=== PATIENT | female | born 1985 | race African-American/Black ===

== ENCOUNTER 2017-02-27 05:12 | Emergency (ER) | payer BC ==
[2017-02-27 05:18] VITALS: BMI 27.3
--- NOTE | 2017-02-27 06:09 | DR.GENAD ---
HPI - PCP Primary Care Physician: NFD - Complaint/Symptoms Chief Complaint Doctors Comments: Patient admits to headache on last night awakened this morning with left sided facial paralysis. Chief Complaint:: " Woke up to face swollen on left side with pain." - Source History Provided: Patient - Mode of Arrival Mode of Arrival: Ambulatory - Timing Onset of Chief Complaint: 02/27/17 PMH - PMH Past Medical History: No Past Surgical History: Yes Surgical History: , Cholecystectomy, Ortho Surgery - Family History History of Family Medical Conditions: Yes Family Medical History: Diabetes Mellitus, Hypertension - Social History Alcohol Use: None Do you use any recreational Drugs:: No Lives With: Family Lives Where: Home - infectious screening Have you traveled outside the country in the last 6 months?: No ROS - Review of Systems Eyes: No Symptoms Reported ENTM: No Symptoms Reported Respiratoy: No Symptoms Reported Cardiovascular: No Symptoms Reported Gastrointestinal/Abdominal: No Symptoms Reported Genitourinary: No Symptoms Reported Neurological: No Symptoms Reported Musculoskeletal: See HPI, Other (left sided facial paralysis) Integumentary: No Symptoms Reported Hematologic/Lymphatic: No Symptoms Reported Endocrine: No Symptoms Reported Psychiatric: No Symptoms Reported All Other Systems: Reviewed and Negative PE - Vital Signs Vitals: Temperature 97.9 F Pulse Rate 83 Respiratory Rate 18 Blood Pressure 130/91 O2 Sat by Pulse Oximetry 100 - General Limitations: No Limitations General Appearance: Alert, In No Apparent Distress - Head Head Exam: Normal Inspection, Atraumatic - Eyes Eye exam: Normal Appearance, PERRL, EOMI - ENT ENT Exam: Normal Exam External Ear Exam: Normal External Inspection TM/Canal Exam: Bilateral Normal Nose Exam: Normal Nose Exam Mouth Exam: Trismus, Other (left sided facial paresis) Throat Exam: Normal Inspection - Neck Neck Exam: Normal Inspection - Chest Chest Inspection: Normal Inspection - Respiratory Respiratory Exam: Normal Lung Sounds Bilat Respiratory Exam: Bilateral Clear to Auscultation - Cardiovascular Cardiovascular Exam: Regular Rate, Normal Rhythm - Abdominal Exam Abdominal Exam: Normal Inspection Abdominal Tenderness: negative: RUQ, RLQ, LUQ, LLQ, Epigastrium, Suprapubic, Diffuse, Mild, Moderate, Severe, Other - Extremities Extremities Exam: Normal Inspection, Full ROM - Back Back Exam: Normal Inspection, Full ROM - Neurologic Neurological Exam: Alert, Oriented X3, CN II-XII Intact - Psychiatric Psychiatric Exam: Normal Affect - Skin Skin Exam: Warm, Dry, Intact ROR - XRAY XRAY Interpreted by: Radiologist (CT Brain: No acute abnormality noted.) - Diagnosis Discharge Problem: Tafoya's palsy - Discharge Plan Condition: Stable - Follow ups/Referrals Follow ups/Referrals: NFD,None [Primary Care Provider] - 3 days - Instructions
--- NOTE | 2017-02-27 06:31 | CT ---
CT head without contrast Indication: Pain after fall. Left-sided facial paralysis. Technique: Axial images from the skullbase to the vertex without contrast. Coronal and sagittal refo rmats provided. Findings: There is no acute intracranial hemorrhage, mass or mass effect. Ventricles and sulci are n ormal. No extra-axial fluid collection or abnormal area of hypoattenuation to suggest infarction see n. Review of bone windows shows no osseous abnormality. The sinuses and mastoid air cells are clear. Impression: No acute intracranial abnormality. Reported By:
[2017-02-27] MEDS ORDERED: NS 1000 ML 1,000 ML ONE ×2 (08:46→09:45)
[2017-02-27] MEDS ORDERED: ZOFRAN INJ 4 MG VIAL ONE ×3 (08:46→10:20)
[2017-02-27] MEDS ORDERED: NS 50 ML IV + SPIKE MINIBAG* 50 ML IV ONE (09:06)
[2017-02-27 09:35] LABS: ABG BASE EXCESS 0.9 mmol/L (-2.0-2.0); ABG HCO3 21.1 mmol/L (22-26)
[2017-02-27 09:36] LABS: ABG ALLEN TEST POS
[2017-02-27 09:48] LABS: BASOPHILS # (AUTO) 0.1 X10^3/uL (0.0-0.1); BASOPHILS % (AUTO) 0.7 % (0.2-1.0); EOSINOPHILS # (AUTO) 0.2 x10^3/uL (0.0-0.2); EOSINOPHILS % (AUTO) 1.8 % (0.9-2.9); HEMATOCRIT 37.5 % (36.0-47.0); HEMOGLOBIN 12.2 g/dL (12.0-16.0); LYMPHOCYTES # (AUTO) 2.8 X10^3/uL (1.3-2.9); LYMPHOCYTES % (AUTO) 28.3 % (21.0-51.0); MEAN CORPUSCULAR HEMOGLOBIN 25.6 pg (27.0-34.0); MEAN CORPUSCULAR HGB CONC 32.5 g/dL (33.0-35.0); MEAN CORPUSCULAR VOLUME 78.7 fL (80.0-100.0); MEAN PLATELET VOLUME 10.1 fL (7.4-11.0); MONOCYTES # (AUTO) 0.4 x10^3/uL (0.3-0.8); MONOCYTES % (AUTO) 4.5 % (0.0-13.0); NEUTROPHILS # (AUTO) 6.4 x10^3/uL (2.2-4.8); NEUTROPHILS % (AUTO) 64.7 % (42.0-75.0); PLATELET COUNT 186 X10^3/uL (150.0-450.0); RED BLOOD COUNT 4.76 X10^6/uL (3.5-5.4); RED CELL DISTRIBUTION WIDTH 13.9 % (11.6-16.5)
--- NOTE | 2017-02-27 09:49 | CT ---
HISTORY: Altered mental status. Study: CT brain without contrast. Dose reduction techniques including Automated Exposure Control (A EC) and adjustment of mA and kV were utilized. Comparison: Head CT performed earlier the same day. Technique: Multiple axial images of the brain were obtained from the skull base to the vertex without administr ation of IV contrast. Findings: No acute intraparenchymal hemorrhage or mass can be identified. No extra-axial fluid col lections are seen. No alteration in the attenuation of the brain parenchyma can be identified to arauz ggest acute or subacute ischemic change. The ventricular system is symmetric and nondilated. The e xtracranial structures are grossly unremarkable. IMPRESSION: No acute intracranial process is evident. There is no concerning change compared with 3 hours earlie r. If symptoms persist, then MR of the brain may be of further diagnostic benefit. Reported By:
[2017-02-27] MEDS ORDERED: ACTIVASE IVP ONE (10:00)
[2017-02-27 10:01] LABS: PLATELET MORPHOLOGY COMMENT NORMAL (NORMAL)
[2017-02-27 10:02] LABS: BLOOD UREA NITROGEN 9 mg/dL (7-18); CALCIUM 9.1 mg/dL (8.5-10.1); CARBON DIOXIDE 22.2 mmol/L (21-32); CHLORIDE 107 mmol/L (98-107); COR NA(FOR HYPERGLY) 141 mmol/L (136-145); CREATININE 0.99 mg/dL (0.55-1.02); GLUCOSE 114 mg/dL (65-99); SODIUM 141 mmol/L (136-145); TROPONIN I < 0.02 ng/mL (0-1.5); eGFR BLACK RACES > 60 (>60); eGFR NON BLACK RACES > 60 (>60)
[2017-02-27] MEDS ORDERED: ACTIVASE IV ONE (10:03)
[2017-02-27] MEDS ORDERED: NS IV ONE (10:03)
[2017-02-27] MEDS ORDERED: ATIVAN INJ 2 MG VIAL ONE (10:04)
[2017-02-27 10:06] LABS: ALANINE AMINOTRANSFERASE 24 Units/L (12-78); ALBUMIN 3.7 g/dL (3.4-5.0); ALKALINE PHOSPHATASE 85 Units/L (46-116); ASPARTATE AMINO TRANSFERASE 18 Units/L (15-37); CKMB % 0.4 % (<4); CREATINE KINASE 232 Units/L (26-192); CREATINE KINASE MB < 1.0 ng/mL (0-4.0); TOTAL PROTEIN 7.5 g/dL (6.4-8.2)
[2017-02-27] MEDS ORDERED: ATIVAN INJ 2 MG VIAL IVP ONE (10:06)
[2017-02-27 10:11] LABS: B-TYPE NATRIURETIC PEPTIDE 88.6 pg/mL (0-79)
[2017-02-27 10:18] LABS: BILIRUBIN,URINE NEGATIVE (NEGATIVE); BLOOD/HEMOGLOBIN,URINE NEGATIVE (NEGATIVE); GLUCOSE, URINE NEGATIVE (NEGATIVE); KETONES,URINE NEGATIVE (NEGATIVE); LEUKOCYTE ESTERASE ,URINE NEGATIVE (NEGATIVE); NITRITES,URINE NEGATIVE (NEGATIVE); PROTEIN,URINE NEGATIVE (NEGATIVE); UROBILINOGEN,URINE NORMAL (NORMAL)
--- NOTE | 2017-02-27 10:28 | RAD ---
HISTORY: Altered mental status, facial drooping, speech disturbance Study: Single-view chest Comparison: December 14, 2016 Findings: The trachea is midline. The cardiac silhouette is borderline enlarged when considering the AP techn ique. The lungs are clear without focal mass or consolidation. There is no effusion or pneumothora x. Thoracic scoliosis is noted. IMPRESSION: Borderline cardiomegaly without acute cardiopulmonary otherwise noted. Reported By:
[2017-02-27 10:30] LABS: AMORPHOUS SEDIMENT,UR TRACE /HPF (NEGATIVE); APPEARANCE,URINE CLEAR (CLEAR); BACTERIA,URINE NEGATIVE /HPF (NEGATIVE); COLOR,URINE PALE YELLOW (YELLOW); RBC,URINE NONE SEEN /HPF (NEGATIVE); SQUAMOUS EPITHELIAL CELL,UR RARE /HPF (NEGATIVE)
[2017-02-27 10:43] LABS: CHOL/HDL RATIO 2.7 (0.0-5.0); SERUM PREGNANCY TEST, QUAL NEGATIVE <10 mIU/mL
[2017-02-27 13:26] VITALS: BP 142/97
== END 2017-02-27 10:34 | disposition short-term general hospital (02) ==
LOC: ER 05:12
DX: G51.0 Bell's palsy (principal); R51 Headache
CPT/HCPCS: 36415; 36600; 51702; 70450; 71010; 80053; 80061; 80307; 81001; 82550; 82553; 82803; 83880; 84484; 84703; 85025; 85378; 85384; 85610; 85730; 93005; 93010; 93041; 96365; 96374; 96375; 99282; 99291; A4222; G0434; J2060; J2405; J2997

== ENCOUNTER → 2017-03-09 | Outpatient (CLI) | payer BC ==
[2017-02-27 13:26] VITALS: BP 142/97
[2017-03-09 07:39] LABS: BASOPHILS # (AUTO) 0.1 X10^3/uL (0.0-0.1); BASOPHILS % (AUTO) 0.8 % (0.2-1.0); EOSINOPHILS # (AUTO) 0.3 x10^3/uL (0.0-0.2); EOSINOPHILS % (AUTO) 3.3 % (0.9-2.9); HEMATOCRIT 39.7 % (36.0-47.0); HEMOGLOBIN 12.8 g/dL (12.0-16.0); LYMPHOCYTES # (AUTO) 3.6 X10^3/uL (1.3-2.9); MEAN CORPUSCULAR HEMOGLOBIN 25.6 pg (27.0-34.0); MEAN CORPUSCULAR HGB CONC 32.2 g/dL (33.0-35.0); MEAN CORPUSCULAR VOLUME 79.3 fL (80.0-100.0); MONOCYTES # (AUTO) 0.5 x10^3/uL (0.3-0.8); MONOCYTES % (AUTO) 4.9 % (0.0-13.0); NEUTROPHILS # (AUTO) 5.3 x10^3/uL (2.2-4.8); PLATELET COUNT 213 X10^3/uL (150.0-450.0); RED BLOOD COUNT 5.01 X10^6/uL (3.5-5.4); RED CELL DISTRIBUTION WIDTH 13.8 % (11.6-16.5); WHITE BLOOD COUNT 9.8 X10^3/uL (3.6-10.0)
[2017-03-09 07:49] LABS: ALANINE AMINOTRANSFERASE 49 Units/L (12-78); ALBUMIN 4.1 g/dL (3.4-5.0); ALKALINE PHOSPHATASE 85 Units/L (46-116); ASPARTATE AMINO TRANSFERASE 24 Units/L (15-37); BLOOD UREA NITROGEN 10 mg/dL (7-18); CALCIUM 9.2 mg/dL (8.5-10.1); CARBON DIOXIDE 27.7 mmol/L (21-32); CHLORIDE 104 mmol/L (98-107); CHOL/HDL RATIO 2.8 (0.0-5.0); CHOLESTEROL 169 mg/dL (0-200); CREATININE 0.93 mg/dL (0.55-1.02); GLUCOSE 98 mg/dL (65-99); HDL CHOLESTEROL 60 mg/dL (40-60); SODIUM 140 mmol/L (136-145); TOTAL PROTEIN 8.5 g/dL (6.4-8.2); TRIGLYCERIDES 103 mg/dL (0-150); eGFR BLACK RACES > 60 (>60); eGFR NON BLACK RACES > 60 (>60)
[2017-03-09 07:58] LABS: PLATELET MORPHOLOGY COMMENT NORMAL (NORMAL)
[2017-03-13 07:21] LABS: INSULIN 11 uIU/mL
== END ==
LOC: LAB 07:13
PROVIDERS: ATTEND Obstetrics & Gynecology Obstetrics
DX: I69.90 Unspecified sequelae of unspecified cerebrovascular disease (principal)
CPT/HCPCS: 36415; 80053; 80061; 82615; 83525; 85025

== ENCOUNTER 2017-03-22 07:18 | Emergency (ER) | payer BC ==
[2017-03-22 07:23] VITALS: BMI 25.0
--- NOTE | 2017-03-22 07:42 | DR.GENAD ---
HPI - PCP Primary Care Physician: mabel - HPI Comment HPI Comment: PROGRESSIVE WEAKNESS OF LEFT FACE THIS AM. LEFT EYE TEARING, NOT CLOSING TIGHT. SHE FEEL PRESSURE BEHIND LEFT EYE AND LT MAXILLA.NO FEVER OR SINUS TRAINAGE. NO TRAUMA. - Complaint/Symptoms Chief Complaint Doctors Comments: WEAKNESS LEFT FACE AND EYE, FEEL BAD. Chief Complaint:: pt woke up not feeling good this morning she feels like she has pressure behind her left eye her left cheeck bone is hurting - Nurses notes reviewed Nurses Notes Review: Yes - Source History Provided: Patient - Mode of Arrival Mode of Arrival: Ambulatory - Timing Onset of Chief Complaint: 03/22/17 Came on: Gradually - Duration Duration: Constant Duration: Hours - Severity Severity: Moderate <DEBBI KNISEY - Last Filed: 03/22/17 08:25> PMH - PMH Past Medical History: Yes Past Medical History Comment: TIA Past Surgical History: Yes Surgical History: , Cholecystectomy, Ortho Surgery - Family History History of Family Medical Conditions: Yes Family Medical History: Diabetes Mellitus, Hypertension - Social History Does patient currently use any type of tobacco product: Yes Have you used tobacco products in the last 12 months: Yes Type of Tobacco Use: Cigarettes How many years tobacco product used: 9 Does any household member use tobacco: No Alcohol Use: None Do you use any recreational Drugs:: No Lives With: Family, Significant Other Lives Where: Home - infectious screening In the last 2 months have you had wt loss of >10#?: NO Have you had fever, night sweats or hemotysis?: No Have you traveled outside the country in the last 6 months?: No Isolation: Standard <DEBBI KINSEY - Last Filed: 03/22/17 08:25> ROS - Review of Systems Constitutional: Weakness (GENERALIZE WEAKNESS.), Fatigue. negative: Chills, Fever Eyes: Tearing (LT EYE). negative: Blurred Vision, Photophobia ENTM: Ear Pain (LT EAR). negative: Nose Discharge, Nose Congestion, Throat Pain Respiratoy: No Symptoms Reported. negative: Productive Cough, Non-Productive Cough, Short of Breath, Wheezing, Hemoptysis Cardiovascular: No Symptoms Reported. negative: Chest Pain, Edema, Palpitations , Syncope Gastrointestinal/Abdominal: Nausea. negative: Abdominal Pain, Diarrhea, Vomiting Genitourinary: No Symptoms Reported. negative: Dysuria, Frequency, Hematuria Neurological: Pre-existing Deficit (RECENT NEURO DEFICIT THAT IS QUICKLY RESOLVING.), Weakness, Other (LEFT FACIAL WEAKNESS) Musculoskeletal: No Symptoms Reported Integumentary: No Symptoms Reported Hematologic/Lymphatic: No Symptoms Reported Endocrine: No Symptoms Reported All Other Systems: Reviewed and Negative <DEBBI KINSEY - Last Filed: 03/22/17 08:25> PE - General Limitations: No Limitations General Appearance: Alert - Head Head Exam: Other (FACIAL WEAKNESS, LT.) - Eyes Eye exam: Normal Appearance - ENT ENT Exam: Normal External Ear Exam External Ear Exam: Normal External Inspection TM/Canal Exam: Bilateral Normal Nose Exam: Normal Nose Exam Mouth Exam: Normal Inspection Throat Exam: Normal Inspection - Neck Neck Exam: Trachea Midline - Chest Chest Inspection: Symmetric Chest Wall Rise - Respiratory Respiratory Exam: Normal Lung Sounds Bilat Respiratory Exam: Bilateral Clear to Auscultation - Cardiovascular Cardiovascular Exam: Regular Rate, Normal Rhythm, Normal Heart Sounds - Abdominal Exam Abdominal Exam: Normal Bowel Sounds, Soft. negative: Tenderness - Extremities Extremities Exam: Normal Inspection - Back Back Exam: Normal Inspection - Neurologic Neurological Exam: Alert, Oriented X3, CN II-XII Intact. negative: Motor Sensory Deficit (SLIGHT LEFT SIDED WEAKNESS) - Psychiatric Psychiatric Exam: Anxious - Skin Skin Exam: Normal Color <DEBBI KINSEY - Last Filed: 03/22/17 08:25> MDM - Differential Diagnosis Differential Diagnosis: CVA, TIA, SINUSITIS <DEBBI KINSEY - Last Filed: 03/22/17 08:25> Course - Reevaluation 1st: Improved <SANTOSH HDEZ - Last Filed: 03/22/17 08:54> ROR - Labs Reviewed Result Diagrams: 03/22/17 07:50 03/22/17 07:50 <EDBBI KINSEY - Last Filed: 03/22/17 08:25> - Labs Reviewed Result Diagrams: 03/22/17 07:50 03/22/17 07:50 - XRAY XRAY Interpreted by: Radiologist (CT Brain: No intracranial process identified, Chest x ray: No infiltrated confirmed) <SANTOSH HDEZ - Last Filed: 03/22/17 08:54> - Labs Reviewed Laboratory: WBC 7.1 X10^3/uL (3.6-10.0) 03/22/17 07:50 RBC 4.61 X10^6/uL (3.5-5.4) 03/22/17 07:50 Hgb 12.0 g/dL (12.0-16.0) 03/22/17 07:50 Hct 36.5 % (36.0-47.0) 03/22/17 07:50 MCV 79.1 fL (80.0-100.0) L 03/22/17 07:50 MCH 26.1 pg (27.0-34.0) L 03/22/17 07:50 MCHC 33.0 g/dL (33.0-35.0) 03/22/17 07:50 RDW 13.4 % (11.6-16.5) 03/22/17 07:50 Plt Count 164 X10^3/uL (150.0-450.0) 03/22/17 07:50 MPV 10.5 fL (7.4-11.0) 03/22/17 07:50 Neut % 61.3 % (42.0-75.0) 03/22/17 07:50 Lymph % 31.8 % (21.0-51.0) 03/22/17 07:50 [place] % 4.5 % (0.0-13.0) 03/22/17 07:50 Eos % 2.0 % (0.9-2.9) 03/22/17 07:50 Baso % 0.4 % (0.2-1.0) 03/22/17 07:50 Neut # 4.3 x10^3/uL (2.2-4.8) 03/22/17 07:50 Lymph # 2.3 X10^3/uL (1.3-2.9) 03/22/17 07:50 [place] # 0.3 x10^3/uL (0.3-0.8) 03/22/17 07:50 Eos # 0.1 x10^3/uL (0.0-0.2) 03/22/17 07:50 Baso # 0.0 X10^3/uL (0.0-0.1) 03/22/17 07:50 Absolute Nucleated RBC 0.0 /100WBC 03/22/17 07:50 Sodium 142 mmol/L (136-145) 03/22/17 07:50 Corrected Sodium 142 mmol/L (136-145) 03/22/17 07:50 Potassium 3.4 mmol/L (3.5-5.1) L 03/22/17 07:50 Chloride 107 mmol/L (98-107) 03/22/17 07:50 Carbon Dioxide 25.4 mmol/L (21-32) 03/22/17 07:50 BUN 8 mg/dL (7-18) 03/22/17 07:50 Creatinine 1.04 mg/dL (0.55-1.02) H 03/22/17 07:50 Est GFR (MDRD) Af Amer > 60 (>60) 03/22/17 07:50 Est GFR (MDRD) Non-Af > 60 (>60) 03/22/17 07:50 Glucose 113 mg/dL (65-99) H 03/22/17 07:50 Calcium 8.8 mg/dL (8.5-10.1) 03/22/17 07:50 Corrected Calcium TNP 03/22/17 07:50 Total Bilirubin 0.30 mg/dL (0.2-1.0) 03/22/17 07:50 AST 12 Units/L (15-37) L 03/22/17 07:50 ALT 18 Units/L (12-78) 03/22/17 07:50 Alkaline Phosphatase 71 Units/L (46-116) 03/22/17 07:50 Creatine Kinase 116 Units/L (26-192) 03/22/17 07:50 CK-MB (CK-2) < 1.0 ng/mL (0-4.0) 03/22/17 07:50 CK/CKMB % Calc 0.9 % (<4) 03/22/17 07:50 Troponin I < 0.02 ng/mL (0-1.5) 03/22/17 07:50 Total Protein 7.3 g/dL (6.4-8.2) 03/22/17 07:50 Albumin 3.7 g/dL (3.4-5.0) 03/22/17 07:50 Globulin 3.6 g/dL (2.5-4.5) 03/22/17 07:50 Albumin/Globulin Ratio 1.0 Ratio (1.1-2.1) L 03/22/17 07:50 (SANTOSH HDEZ) <DEBBI KINSEY - Last Filed: 03/22/17 08:25> <SANTOSH HDEZ - Last Filed: 03/22/17 08:54> - Diagnosis Discharge Problem: History of atypical migraine - Discharge Plan Condition: Stable - Follow ups/Referrals Follow ups/Referrals: JUNIOR JONES [Primary Care Provider] - 3 days - Instructions
[2017-03-22 08:03] LABS: BASOPHILS % (AUTO) 0.4 % (0.2-1.0); EOSINOPHILS # (AUTO) 0.1 x10^3/uL (0.0-0.2); HEMATOCRIT 36.5 % (36.0-47.0); LYMPHOCYTES # (AUTO) 2.3 X10^3/uL (1.3-2.9); LYMPHOCYTES % (AUTO) 31.8 % (21.0-51.0); MEAN CORPUSCULAR HEMOGLOBIN 26.1 pg (27.0-34.0); MEAN CORPUSCULAR VOLUME 79.1 fL (80.0-100.0); MEAN PLATELET VOLUME 10.5 fL (7.4-11.0); MONOCYTES # (AUTO) 0.3 x10^3/uL (0.3-0.8); MONOCYTES % (AUTO) 4.5 % (0.0-13.0); NEUTROPHILS # (AUTO) 4.3 x10^3/uL (2.2-4.8); NEUTROPHILS % (AUTO) 61.3 % (42.0-75.0); PLATELET COUNT 164 X10^3/uL (150.0-450.0); RED BLOOD COUNT 4.61 X10^6/uL (3.5-5.4); RED CELL DISTRIBUTION WIDTH 13.4 % (11.6-16.5); WHITE BLOOD COUNT 7.1 X10^3/uL (3.6-10.0)
[2017-03-22] MEDS ORDERED: ZOFRAN INJ 4 MG VIAL IVP ONE (08:09)
[2017-03-22] MEDS ORDERED: ZOFRAN INJ 4 MG VIAL ONE (08:10)
--- NOTE | 2017-03-22 08:11 | CT ---
HISTORY: Left facial weakness Study: CT brain without contrast Comparison: February 27, 2017 Technique: Multiple axial images of the brain were obtained from the skull base to the vertex without administr ation of IV contrast. Coronal and sagittal reformats were performed. Dose reduction procedures were use with MA/kv adjusted for body size. Findings: No acute intraparenchymal hemorrhage or mass can be identified. No extra-axial fluid collections ar e seen. No alteration in the attenuation of the brain parenchyma can be identified to suggest acute or subacute ischemic change. The ventricular system is symmetric and nondilated. The extracranial structures are grossly unremarkable. IMPRESSION: No significant intracranial abnormality identified Reported By:
--- NOTE | 2017-03-22 08:13 | RAD ---
HISTORY: Weakness Study: Chest one view Comparison: February 27, 2017 Findings: The trachea is midline. The cardiac silhouette is unremarkable. The lungs are well inflated. The r ight lung and left upper lung clark are clear. There is a question of a small infiltrate in the ret rocardiac left lower lobe. Correlation with upright PA and lateral chest is recommended for further evaluation.. The bony thorax is unremarkable. IMPRESSION: Possible small left lower lobe infiltrate. Recommend further evaluation with upright PA and lateral chest examination Reported By:
[2017-03-22 08:20] LABS: BLOOD UREA NITROGEN 8 mg/dL (7-18); CALCIUM 8.8 mg/dL (8.5-10.1); CARBON DIOXIDE 25.4 mmol/L (21-32); CHLORIDE 107 mmol/L (98-107); COR NA(FOR HYPERGLY) 142 mmol/L (136-145); CREATININE 1.04 mg/dL (0.55-1.02); GLUCOSE 113 mg/dL (65-99); SODIUM 142 mmol/L (136-145); TROPONIN I < 0.02 ng/mL (0-1.5); eGFR BLACK RACES > 60 (>60); eGFR NON BLACK RACES > 60 (>60)
[2017-03-22] MEDS ORDERED: ASPIRIN ONE (08:20)
[2017-03-22 08:24] LABS: ALANINE AMINOTRANSFERASE 18 Units/L (12-78); ALBUMIN 3.7 g/dL (3.4-5.0); ALKALINE PHOSPHATASE 71 Units/L (46-116); ASPARTATE AMINO TRANSFERASE 12 Units/L (15-37); CKMB % 0.9 % (<4); CREATINE KINASE 116 Units/L (26-192); CREATINE KINASE MB < 1.0 ng/mL (0-4.0); TOTAL PROTEIN 7.3 g/dL (6.4-8.2)
--- NOTE | 2017-03-22 08:43 | RAD ---
HISTORY: Cough Study: Chest two-view Comparison: AP chest same date Findings: The heart is within normal limits in size. The alena are normal. The lungs are well inflated and free of acute infiltrates. A left lower lobe infiltrate as was suggested on the AP film is not confirmed . There is minimal subsegmental atelectasis in the left lung base. The bony thorax is unremarkable. IMPRESSION: Lungs clear, left lower lobe infiltrate not confirmed Reported By:
[2017-03-22] MEDS ORDERED: ASPIRIN PO SCH (09:00)
--- NOTE | 2017-03-22 10:54 | MRI ---
MRI Brain with contrast HISTORY: Headache Comparison:CT performed on same day Technique: Multiplanar multi-sequence MRI of the brain was obtained utilizing standard departmental protocol. Sagittal and axial T1 weighted images were obtained. Axial T2 and flair weighted images were performed as well. Axial diffusion weighted and ADC trace mapping was performed. Findings: The midline structures appear unremarkable. The evaluation of the brain parenchyma demonstrates no abnormal signal characteristics to suggest intraparenchymal mass or hemorrhage. No extra-axial flui d collections are observed. The ventricular system appears symmetric and nondilated. The CP angle is normal in its appearance without brainstem mass or evidence for acoustic neuroma. The flow void s on both T1 and T2 weighted imaging appear unremarkable. Evaluation of the diffusion weighted imag ing does not demonstrate abnormal signal characteristics to suggest acute ischemic change. The extr acranial structures are unremarkable. Post contrast imaging demonstrates no abnormal parenchymal or extra-axial enhancement. IMPRESSION: 1. Normal brain MRI. Reported By:
[2017-03-22 11:06] VITALS: BP 136/90
== END 2017-03-22 11:51 | disposition home or self-care (01) ==
LOC: ER 07:44
DX: G43.909 Migraine, unspecified, not intractable, without status migrainosus (principal)
CPT/HCPCS: 36415; 70450; 70552; 71010; 71020; 80053; 82550; 82553; 84484; 85025; 93005; 93010; 96374; 99283; A4222; J2405

== ENCOUNTER → 2017-03-30 | Outpatient (CLI) | payer BC ==
[2017-03-22 11:06] VITALS: BP 136/90
== END ==
LOC: RT 13:40
PROVIDERS: ATTEND Psychiatry & Neurology Neurology
DX: G43.909 Migraine, unspecified, not intractable, without status migrainosus (principal)
CPT/HCPCS: 95819

== ENCOUNTER 2017-05-19 05:05 | Emergency (ER) | payer BC ==
[2017-05-19 05:10] VITALS: BP 151/79; BMI 24.5
[2017-05-19] MEDS ORDERED: ZOFRAN INJ 4 MG VIAL IVP ONE (05:11)
[2017-05-19] MEDS ORDERED: NS 1000 ML 1,000 ML IV ONE (05:11)
[2017-05-19] MEDS ORDERED: ZOFRAN INJ 4 MG VIAL ONE (05:13)
[2017-05-19] MEDS ORDERED: NS 1000 ML 1,000 ML ONE (05:13)
[2017-05-19] MEDS ORDERED: TORADOL 30 MG VIAL ONE (05:23)
[2017-05-19] MEDS ORDERED: TORADOL 30 MG VIAL IVP ONE (05:26)
[2017-05-19 05:29] LABS: BASOPHILS # (AUTO) 0.1 X10^3/uL (0.0-0.1); BASOPHILS % (AUTO) 0.7 % (0.2-1.0); EOSINOPHILS # (AUTO) 0.3 x10^3/uL (0.0-0.2); EOSINOPHILS % (AUTO) 2.6 % (0.9-2.9); HEMATOCRIT 35.6 % (36.0-47.0); HEMOGLOBIN 11.6 g/dL (12.0-16.0); LYMPHOCYTES # (AUTO) 2.9 X10^3/uL (1.3-2.9); LYMPHOCYTES % (AUTO) 26.5 % (21.0-51.0); MEAN CORPUSCULAR HEMOGLOBIN 25.9 pg (27.0-34.0); MEAN CORPUSCULAR HGB CONC 32.6 g/dL (33.0-35.0); MEAN CORPUSCULAR VOLUME 79.4 fL (80.0-100.0); MEAN PLATELET VOLUME 10.5 fL (7.4-11.0); MONOCYTES # (AUTO) 0.6 x10^3/uL (0.3-0.8); MONOCYTES % (AUTO) 5.8 % (0.0-13.0); NEUTROPHILS % (AUTO) 64.4 % (42.0-75.0); PLATELET COUNT 175 X10^3/uL (150.0-450.0); RED BLOOD COUNT 4.49 X10^6/uL (3.5-5.4); RED CELL DISTRIBUTION WIDTH 14.2 % (11.6-16.5); WHITE BLOOD COUNT 10.9 X10^3/uL (3.6-10.0)
[2017-05-19 05:39] LABS: ALANINE AMINOTRANSFERASE 18 Units/L (12-78); ALBUMIN 3.5 g/dL (3.4-5.0); ALKALINE PHOSPHATASE 75 Units/L (46-116); AMYLASE 85 Units/L (25-115); ASPARTATE AMINO TRANSFERASE 13 Units/L (15-37); BLOOD UREA NITROGEN 8 mg/dL (7-18); CARBON DIOXIDE 23.8 mmol/L (21-32); CHLORIDE 108 mmol/L (98-107); CREATININE 0.78 mg/dL (0.55-1.02); GLUCOSE 103 mg/dL (65-99); LIPASE 85 Units/L (73-393); SODIUM 140 mmol/L (136-145); TOTAL PROTEIN 7.3 g/dL (6.4-8.2); eGFR BLACK RACES > 60 (>60); eGFR NON BLACK RACES > 60 (>60)
[2017-05-19 05:57] LABS: PLATELET MORPHOLOGY COMMENT NORMAL (NORMAL)
--- NOTE | 2017-05-19 06:25 | DR.GENAD ---
HPI - PCP Primary Care Physician: hugh - HPI Comment HPI Comment: Patient c/o abd pain with nausea, vomiting and diarrhea after eating jordanian food last night. She denies fever and chills. She reports 2 episodes of h. pylori. - Complaint/Symptoms Chief Complaint Doctors Comments: abd pain Chief Complaint:: n/v/d - Nurses notes reviewed Nurses Notes Review: Yes - Source History Provided: Patient - Mode of Arrival Mode of Arrival: Ambulatory - Timing Onset of Chief Complaint: 05/19/17 - Duration Duration: Since Onset How lon Duration: Hours - Severity Severity: Moderate PMH - PMH Past Medical History: Yes Past Medical History: CVA, Hypertension Past Surgical History: Yes Surgical History: , Cholecystectomy, Ortho Surgery - Family History History of Family Medical Conditions: Yes Family Medical History: Diabetes Mellitus, Hypertension - Social History Does patient currently use any type of tobacco product: No Have you used tobacco products in the last 12 months: No Type of Tobacco Use: None Does any household member use tobacco: No Alcohol Use: None Do you use any recreational Drugs:: No Lives With: Family Lives Where: Home - infectious screening In the last 2 months have you had wt loss of >10#?: NO Have you had fever, night sweats or hemotysis?: No Have you traveled outside the country in the last 6 months?: No Isolation: Standard ROS - Review of Systems Constitutional: No Symptoms Reported Respiratoy: No Symptoms Reported Cardiovascular: No Symptoms Reported Gastrointestinal/Abdominal: Abdominal Pain, Diarrhea, Nausea, Vomiting Genitourinary: No Symptoms Reported Neurological: No Symptoms Reported Musculoskeletal: No Symptoms Reported Integumentary: No Symptoms Reported Hematologic/Lymphatic: No Symptoms Reported Endocrine: No Symptoms Reported Psychiatric: No Symptoms Reported All Other Systems: Reviewed and Negative PE - Vital Signs Vitals: Pulse Rate [Apical] 93 Pulse Rate 122 Respiratory Rate 22 Blood Pressure [Right Arm] 136/90 Blood Pressure 151/79 O2 Sat by Pulse Oximetry 100 - General Limitations: No Limitations General Appearance: Alert, Anxious - Head Head Exam: Normal Inspection - Eyes Eye exam: PERRL, EOMI - ENT ENT Exam: Normal Exam, Normal Oropharynx, Mucous Membranes Moist External Ear Exam: Normal External Inspection TM/Canal Exam: Bilateral Normal - Neck Neck Exam: Normal Inspection, Full ROM, Trachea Midline - Chest Chest Inspection: Normal Inspection, Symmetric Chest Wall Rise - Respiratory Respiratory Exam: Normal Lung Sounds Bilat Respiratory Exam: Bilateral Clear to Auscultation - Cardiovascular Cardiovascular Exam: Regular Rate, Tachycardia, Normal Heart Sounds - Abdominal Exam Abdominal Exam: Soft, Tenderness, Hyperactive Bowel Sounds Abdominal Tenderness: RLQ, Epigastrium - Extremities Extremities Exam: Normal Inspection, Full ROM - Back Back Exam: Normal Inspection, Full ROM - Neurologic Neurological Exam: Alert, Oriented X3, CN II-XII Intact - Skin Skin Exam: Warm, Dry, Intact, Normal Color MDM - Differential Diagnosis Differential Diagnosis: food poisoning, gastroenteritis, Course - Reevaluation 1st: Improved (Nausea is better but pain persists) - Education/Counseling Education/Counseling: Patient, Education Educated On: Treatment, Diagnosis, Prognosis, Needs for Follow Up ROR - Labs Reviewed Laboratory Results Reviewed?: Yes Result Diagrams: 05/19/17 05:15 05/19/17 05:15 Laboratory: WBC 10.9 X10^3/uL (3.6-10.0) H 05/19/17 05:15 RBC 4.49 X10^6/uL (3.5-5.4) 05/19/17 05:15 Hgb 11.6 g/dL (12.0-16.0) L 05/19/17 05:15 Hct 35.6 % (36.0-47.0) L 05/19/17 05:15 MCV 79.4 fL (80.0-100.0) L 05/19/17 05:15 MCH 25.9 pg (27.0-34.0) L 05/19/17 05:15 MCHC 32.6 g/dL (33.0-35.0) L 05/19/17 05:15 RDW 14.2 % (11.6-16.5) 05/19/17 05:15 Plt Count 175 X10^3/uL (150.0-450.0) 05/19/17 05:15 Plt Count Comment Adequate (ADEQUATE) 05/19/17 05:15 MPV 10.5 fL (7.4-11.0) 05/19/17 05:15 Neut % 64.4 % (42.0-75.0) 05/19/17 05:15 Lymph % 26.5 % (21.0-51.0) 05/19/17 05:15 [place] % 5.8 % (0.0-13.0) 05/19/17 05:15 Eos % 2.6 % (0.9-2.9) 05/19/17 05:15 Baso % 0.7 % (0.2-1.0) 05/19/17 05:15 Neut # 7.0 x10^3/uL (2.2-4.8) H 05/19/17 05:15 Lymph # 2.9 X10^3/uL (1.3-2.9) 05/19/17 05:15 [place] # 0.6 x10^3/uL (0.3-0.8) 05/19/17 05:15 Eos # 0.3 x10^3/uL (0.0-0.2) H 05/19/17 05:15 Baso # 0.1 X10^3/uL (0.0-0.1) 05/19/17 05:15 Absolute Nucleated RBC 0.0 /100WBC 05/19/17 05:15 Plt Morphology Comment Normal (NORMAL) 05/19/17 05:15 RBC Morphology Normal (NORMAL) 05/19/17 05:15 Sodium 140 mmol/L (136-145) 05/19/17 05:15 Corrected Sodium TNP 05/19/17 05:15 Potassium 3.7 mmol/L (3.5-5.1) 05/19/17 05:15 Chloride 108 mmol/L (98-107) H 05/19/17 05:15 Carbon Dioxide 23.8 mmol/L (21-32) 05/19/17 05:15 BUN 8 mg/dL (7-18) 05/19/17 05:15 Creatinine 0.78 mg/dL (0.55-1.02) 05/19/17 05:15 Est GFR (MDRD) Af Amer > 60 (>60) 05/19/17 05:15 Est GFR (MDRD) Non-Af > 60 (>60) 05/19/17 05:15 Glucose 103 mg/dL (65-99) H 05/19/17 05:15 Calcium 8.0 mg/dL (8.5-10.1) L 05/19/17 05:15 Corrected Calcium TNP 05/19/17 05:15 Total Bilirubin 0.20 mg/dL (0.2-1.0) 05/19/17 05:15 AST 13 Units/L (15-37) L 05/19/17 05:15 ALT 18 Units/L (12-78) 05/19/17 05:15 Alkaline Phosphatase 75 Units/L (46-116) 05/19/17 05:15 Total Protein 7.3 g/dL (6.4-8.2) 05/19/17 05:15 Albumin 3.5 g/dL (3.4-5.0) 05/19/17 05:15 Globulin 3.8 g/dL (2.5-4.5) 05/19/17 05:15 Albumin/Globulin Ratio 0.9 Ratio (1.1-2.1) L 05/19/17 05:15 Amylase 85 Units/L (25-115) 05/19/17 05:15 Lipase 85 Units/L (73-393) 05/19/17 05:15 - XRAY XRAY Interpreted by: Radiologist XRAY Findings: no acute intraabdominal pathology was noted. - Diagnosis Discharge Problem: Food poisoning Qualifiers: Encounter type: initial encounter Injury intent: accidental or unintentional Qualified Code(s): T62.91XA - Toxic effect of unspecified noxious substance eaten as food, accidental (unintentional), initial encounter Abdominal pain Qualifiers: Abdominal location: generalized Qualified Code(s): R10.84 - Generalized abdominal pain - Discharge Plan Disposition: HOME, SELF-CARE Condition: Stable Prescriptions: Ondansetron [Zofran Odt] 8 mg PO Q8H PRN #10 tab.rapdis PRN Reason: - Follow ups/Referrals Follow ups/Referrals: CRISTINA CHAVEZ [Primary Care Provider] - 3 days - Instructions Instructions: Nausea, Adult, Dehydration, Adult, [id number]
--- NOTE | 2017-05-19 06:25 | RAD ---
HISTORY: Abdominal pain common nausea, vomiting, diarrhea Study: Acute abdominal series Comparison: March 22, 2017 Findings: The trachea is midline. The cardiac silhouette is unremarkable. The lungs are clear without focal infiltrate or effusion. The bony thorax is unremarkable. Flat plate and upright evaluation of the abdomen demonstrates a nonspecific, nonobstructive bowel ga s pattern. No pneumoperitoneum is identified.. No pathological soft tissue mass or calcification ca n be observed. The bony structures are grossly intact. IMPRESSION: 1. No acute cardiopulmonary disease. 2. No evidence for acute abdominal pathology identified. Reported By:
[2017-05-19] MEDS ORDERED: PHENERGAN INJ 25 MG IVP ONE (06:40)
[2017-05-19] MEDS ORDERED: PHENERGAN INJ 25 MG ONE (08:37)
== END 2017-05-19 07:23 | disposition home or self-care (01) ==
LOC: ER 05:05
DX: T62.91XA Toxic effect of unspecified noxious substance eaten as food, accidental (unintentional), initial encounter (principal); R10.84 Generalized abdominal pain
CPT/HCPCS: 36415; 74022; 80053; 82150; 83690; 85025; 86677; 96365; 96374; 96375; 99283; A4222; J1885; J2405; J2550

== ENCOUNTER 2018-02-16 23:59 | Emergency (ER) | payer BC ==
[2018-02-17 00:32] VITALS: BMI 28.6
[2018-02-17] MEDS ORDERED: ZOFRAN INJ 4 MG VIAL IVP ONE (00:33)
[2018-02-17] MEDS ORDERED: TORADOL 30 MG VIAL IVP STA (00:34)
[2018-02-17] MEDS ORDERED: ZOFRAN INJ 4 MG VIAL ONE (00:36)
[2018-02-17] MEDS ORDERED: TORADOL 30 MG VIAL ONE (00:36)
--- NOTE | 2018-02-17 00:37 | DR.GENAD ---
HPI - PCP Primary Care Physician: NFD - Complaint/Symptoms Chief Complaint Doctors Comments: Patient is complaining of a severe headache for the past hour. States sudden onset of headache with nausea. Patient states she has a history or headaches in the past and this is not the worst headache of her life. States she has been having blurred vision but denies chest pain or SOB. Patient states she took a Naprosyn before leaving home. States the pain is 20 of 10. She denies any recent trauma. She denies fever , chills, cold or cough. Chief Complaint:: PT C/O SEVERE MIGRAINE TOLENTINO PT HAS HX OF TIA IN THE PAST - Nurses notes reviewed Nurses Notes Review: Yes - Source History Provided: Patient - Mode of Arrival Mode of Arrival: EMS - Timing Onset of Chief Complaint: 02/16/18 Came on: Suddenly - Duration Duration: Constant How lon Duration: Hours - Location Location: diffuse headache - Severity Severity: Severe - Modifying Factors Worsens:: movement Improves:: nothing PMH - PMH Past Medical History: Yes Past Medical History: CVA, Hypertension Past Surgical History: Yes Surgical History: , Cholecystectomy, Ortho Surgery - Family History History of Family Medical Conditions: Yes Family Medical History: Diabetes Mellitus, Hypertension - Social History Does any household member use tobacco: Yes Alcohol Use: None Do you use any recreational Drugs:: No Lives With: Family Lives Where: Home - infectious screening In the last 2 months have you had wt loss of >10#?: NO Have you had fever, night sweats or hemotysis?: No Have you traveled outside the country in the last 6 months?: No Isolation: Standard ROS - Review of Systems Constitutional: No Symptoms Reported. negative: See HPI, Chills, Diaphoresis, Fever, Malaise, Weakness, Irritable, Fatigue, Loss of Appetite, Other Eyes: Blurred Vision. negative: No Symptoms Reported, See HPI, Eye Pain, Tearing, Discharge, Photophobia, Diplopia, Other ENTM: No Symptoms Reported. negative: See HPI, Ear Pain, Ear Discharge, Pulling on Ears, Hearing Loss, Nose Pain, Nose Discharge, Epistaxis, Nose Congestion, Mouth Pain, Mouth Swelling, Loose Teeth, Drooling, Throat Pain, Throat Swelling, Ear Foreign Body Respiratoy: No Symptoms Reported. negative: See HPI, Productive Cough, Non- Productive Cough, Moist Cough, Dry Cough, Hacking Cough, Barking Cough, Brassy Cough, Orthopnea, Short of Breath, Stridor, Wheezing, Hemoptysis, Other Cardiovascular: No Symptoms Reported. negative: See HPI, Chest Pain, Edema, Palpitations, Syncope, Cyanosis, Skin Mottling, Other Gastrointestinal/Abdominal: No Symptoms Reported. negative: See HPI, Abdominal Pain, Constipation, Diarrhea, Nausea, Vomiting, Food Intolerance, Other Genitourinary: No Symptoms Reported. negative: See HPI, Discharge, Dysuria, Frequency, Hematuria, Pain, Bleeding, Other Neurological: No Symptoms Reported, Headache, Weakness, Problems Walking Musculoskeletal: No Symptoms Reported Integumentary: No Symptoms Reported Hematologic/Lymphatic: No Symptoms Reported Endocrine: No Symptoms Reported Psychiatric: No Symptoms Reported. negative: See HPI, Anxiety, Depression, Hallucinations, Excessive crying, Suicidal, Other PE - Vital Signs Vitals: Temperature 98.3 F Pulse Rate 87 Respiratory Rate 22 Blood Pressure [Right Arm] 136/90 Blood Pressure 121/89 O2 Sat by Pulse Oximetry 100 - General Limitations: No Limitations General Appearance: Alert, In Distress (moderate to severe) - Head Head Exam: Normal Inspection, Atraumatic, Normocephalic - Eyes Eye exam: Normal Appearance, PERRL, EOMI. negative: Scleral Icterus, Conjunctival Injection, Nystagmus, Miosis, Mydrasis, Periorbital Swelling, Periorbital Tenderness, Other - ENT ENT Exam: Normal Exam, Normal Oropharynx, Normal External Ear Exam, Mucous Membranes Moist, TM's Normal Bilaterally External Ear Exam: Normal External Inspection TM/Canal Exam: Bilateral Normal Nose Exam: Normal Nose Exam Mouth Exam: Normal Inspection Throat Exam: Normal Inspection. negative: Tonsillar Erythema, Tonsillomegaly, Tonsillar Exudate, R Peritonsillar Mass, L Peritonsillar Mass, Muffled Voice, Other - Neck Neck Exam: Normal Inspection, Full ROM, Trachea Midline - Chest Chest Inspection: Normal Inspection, Symmetric Chest Wall Rise - Respiratory Respiratory Exam: Normal Lung Sounds Bilat Respiratory Exam: Bilateral Clear to Auscultation - Cardiovascular Cardiovascular Exam: Regular Rate, Normal Rhythm, Normal Heart Sounds - Abdominal Exam Abdominal Exam: Normal Inspection, Normal Bowel Sounds, Soft Abdominal Tenderness: negative: RUQ, RLQ, LUQ, LLQ, Epigastrium, Suprapubic, Diffuse, Mild, Moderate, Severe, Other - Extremities Extremities Exam: Normal Inspection, Full ROM, Normal Capillary Refill. negative: Tenderness, Edema, Joint Swelling, Calf Tenderness, Other - Back Back Exam: Normal Inspection, Full ROM. negative: Tenderness, (R) CVA Tenderness, (L) CVA Tenderness, Muscle Spasm, Paraspinal Tenderness, Vertebral Tenderness, Rashes, (R) Sciatic Notch Tenderness, (L) Sciatic Notch Tendern, (R ) Straight Leg Raise, (L) Straight Leg Raise, Other - Neurologic Neurological Exam: Alert, Oriented X3, CN II-XII Intact, Reflexes Normal. negative: Normal Gait (gait not tested) - Psychiatric Psychiatric Exam: Normal Affect, Normal Mood. negative: Depressed, Agitated, Anxious, Flat Affect, Manic, Homicidal Ideation, Suicidal Ideation, Other - Skin Skin Exam: Warm, Dry, Intact, Normal Color ROR - Labs Reviewed Laboratory Results Reviewed?: Yes (all x-ray results reviewed and discussed with patient) - XRAY XRAY Interpreted by: Radiologist (CT head: NO acute intacranial hemorrhage. No area concerning for acute infarction or change from the prior.) - Diagnosis Discharge Problem: History of atypical migraine Acute headache Qualifiers: Intractability: intractable - Discharge Plan Disposition: 01 HOME, SELF-CARE Condition: Stable - Follow ups/Referrals Follow ups/Referrals: NFD,None [Primary Care Provider] - 3 days - Instructions Instructions: General Headache Without Cause, [id number], Migraine Headache, [id number]
--- NOTE | 2018-02-17 00:42 | CT ---
CT head without contrast Indication: Stroke symptoms and headache Comparison: MR brain from 03/22/2017 Technique: Axial images from the skullbase to the vertex without contrast. Findings: There is no acute intracranial hemorrhage, mass or mass effect. No extra-axial fluid collec tion is identified. Ventricles and sulci appear normal. Review of bone windows shows no osseous lesion. Paranasal sinuses and mastoid air cells are clear. Impression: 1. No acute intracranial hemorrhage. 2. No area concerning for acute infarction or change from the prior. If there is high clinical suspic ion for acute infarction, and it would make a clinical difference to diagnose stroke now, MR is most sensitive and specific absent contraindication Reported By:
[2018-02-17] MEDS ORDERED: DEMEROL INJ IVP ONE (00:57)
[2018-02-17] MEDS ORDERED: DEMEROL INJ ONE (01:05)
[2018-02-17 02:53] VITALS: BP 115/79
== END 2018-02-17 02:45 | disposition home or self-care (01) ==
LOC: ER 23:59
DX: G43.909 Migraine, unspecified, not intractable, without status migrainosus (principal)
CPT/HCPCS: 70450; 96365; 96374; 96375; 99283; J1885; J2175; J2405

== ENCOUNTER 2019-07-04 05:06 | Observation (INO) ==
[2019-07-04] MEDS ORDERED: ATIVAN INJ 2 MG VIAL ONE (05:22)
[2019-07-04] MEDS ORDERED: ATIVAN INJ 2 MG VIAL IVP ONE (05:23)
[2019-07-04 05:37] LABS: BASOPHILS # (AUTO) 0.1 X10^3/uL (0.0-0.1); BASOPHILS % (AUTO) 0.5 % (0.2-1.0); EOSINOPHILS # (AUTO) 0.2 x10^3/uL (0.0-0.2); EOSINOPHILS % (AUTO) 2.1 % (0.9-2.9); HEMATOCRIT 38.9 % (36.0-47.0); HEMOGLOBIN 13.1 g/dL (12.0-16.0); LYMPHOCYTES # (AUTO) 3.7 X10^3/uL (1.3-2.9); LYMPHOCYTES % (AUTO) 35.3 % (21.0-51.0); MEAN CORPUSCULAR HEMOGLOBIN 27.5 pg (27.0-34.0); MEAN CORPUSCULAR HGB CONC 33.8 g/dL (33.0-35.0); MEAN CORPUSCULAR VOLUME 81.4 fL (80.0-100.0); MEAN PLATELET VOLUME 10.4 fL (7.4-11.0); MONOCYTES # (AUTO) 0.8 x10^3/uL (0.3-0.8); MONOCYTES % (AUTO) 7.3 % (0.0-13.0); NEUTROPHILS # (AUTO) 5.7 x10^3/uL (2.2-4.8); NEUTROPHILS % (AUTO) 54.8 % (42.0-75.0); PLATELET COUNT 187 X10^3/uL (150.0-450.0); RED BLOOD COUNT 4.77 X10^6/uL (3.5-5.4); RED CELL DISTRIBUTION WIDTH 13.2 % (11.6-16.5); WHITE BLOOD COUNT 10.4 X10^3/uL (3.6-10.0)
--- NOTE | 2019-07-04 05:37 | RAD ---
AP chest Indication: Unresponsive Comparison: 05/19/2017 Findings: Trachea is midline. Heart size is borderline enlarged. No focal airspace opacity, pleural effusion or pneumothorax. No acute osseous abnormality. Impression: Borderline cardiomegaly without acute airspace disease or CHF. Reported By:
[2019-07-04 05:39] VITALS: BMI 26.6
--- NOTE | 2019-07-04 05:39 | DR.CP ---
HPI Time Seen Time Seen by Provider: 07/04/19 05:10 Complaint Chief Complaint Doctor Comments: A 34 y/o female who had passed out upon arrival at work. A co-worker states that she had c/o not feeling good most of the night. It is not quite clear if she was having chest pain. Anyway she passed out and the co-worker caught and helped ease her to the floor and called for help. By the time help arrived, she was unresponsive and her eyes were rapidly blinking. No jerking was noted. In the ED she stated she couldn't breath and she was noted hyperventilating. Chief Complaint:: Addendum : when she is now able to talk and I re-evaluated her, she states that she had been having chest pain pressure like since late night hours last night and she couldn't go to sleep till about 2 a.m. It was present upon awakening but she managed to get ready slowly for work. It was pressure like, heavy in the middle of the chest with no radiation, palpitation or diaphoresis. The pain is better now but still present. Reviewed Nurses Notes Review: Yes Source History Provided: Patient and Bystander Mode of Arrival Mode of Arrival: Stretcher Timing Came on: Suddenly Pain: Resolved Context Cardiac Risk Factors: None PE Risk Factors: None Prehospital Care: None PMH PMH Past Medical History: Migraines Past Surgical History: Yes Surgical History: , Cholecystectomy and Ortho Surgery Family History Family Medical History: Diabetes Mellitus and Hypertension Social History Do you use any recreational Drugs:: No ROS Review of Systems Constitutional: No Symptoms Reported Eyes: No Symptoms Reported ENTM: No Symptoms Reported Respiratoy: Short of Breath Cardiovascular: No Symptoms Reported Gastrointestinal/Abdominal: No Symptoms Reported Genitourinary: No Symptoms Reported Neurological: Other (Syncope) Musculoskeletal: No Symptoms Reported Integumentary: No Symptoms Reported Hematologic/Lymphatic: No Symptoms Reported Endocrine: No Symptoms Reported Psychiatric: No Symptoms Reported PE Vitals Vitals: Temperature 97.4 F Pulse Rate 120 Respiratory Rate 60 Blood Pressure [Right Arm] 118/74 Blood Pressure 124/70 O2 Sat by Pulse Oximetry 100 General Limitations: No Limitations General Appearance: Alert and Anxious Head Head Exam: Normal Inspection, Atraumatic and Normocephalic Eyes Eye exam: Normal Appearance and EOMI ENT ENT Exam: Normal Exam, Normal Oropharynx and Mucous Membranes Moist Chest Chest Inspection: Normal Inspection and Symmetric Chest Wall Rise Respiratory Respiratory Exam: Other (tachypneic) Respiratory Exam: Bilateral: Clear to Auscultation Cardiovascular Cardiovascular Exam: Tachycardia, Normal Heart Sounds, +S1 and +S2 Pulse: Normal Edema: Normal Abdominal Exam Abdominal Exam: Normal Inspection, Normal Bowel Sounds and Soft Extremities Extremities Exam: Normal Inspection and Full ROM Back Back Exam: Normal Inspection and Full ROM Neurologic Neurological Exam: Alert and Oriented X3 Psychiatric Psychiatric Exam: Normal Affect and Anxious Skin Skin Exam: Dry and Normal Color COURSE Reevaluation 1st: Improved (She is calmer and is able to give hx. herself. ) 2nd: Improved Education/Counseling Education/Counseling: Patient, Education and Counseling Educated On: Treatment, Diagnosis, Prognosis and Needs for Follow Up ROR Labs Reviewed Laboratory Results Reviewed?: Yes Result Diagrams: 07/04/19 05:25 07/04/19 05:25 Laboratory: WBC 10.4 X10^3/uL (3.6-10.0) H 07/04/19 05:25 RBC 4.77 X10^6/uL (3.5-5.4) 07/04/19 05:25 Hgb 13.1 g/dL (12.0-16.0) 07/04/19 05:25 Hct 38.9 % (36.0-47.0) 07/04/19 05:25 MCV 81.4 fL (80.0-100.0) 07/04/19 05:25 MCH 27.5 pg (27.0-34.0) 07/04/19 05:25 MCHC 33.8 g/dL (33.0-35.0) 07/04/19 05:25 RDW 13.2 % (11.6-16.5) 07/04/19 05:25 Plt Count 187 X10^3/uL (150.0-450.0) 07/04/19 05:25 MPV 10.4 fL (7.4-11.0) 07/04/19 05:25 Neut % (Auto) 54.8 % (42.0-75.0) 07/04/19 05:25 Lymph % (Auto) 35.3 % (21.0-51.0) 07/04/19 05:25 [place] % (Auto) 7.3 % (0.0-13.0) 07/04/19 05:25 Eos % (Auto) 2.1 % (0.9-2.9) 07/04/19 05:25 Baso % (Auto) 0.5 % (0.2-1.0) 07/04/19 05:25 Neut # (Auto) 5.7 x10^3/uL (2.2-4.8) H 07/04/19 05:25 Lymph # (Auto) 3.7 X10^3/uL (1.3-2.9) H 07/04/19 05:25 [place] # (Auto) 0.8 x10^3/uL (0.3-0.8) 07/04/19 05:25 Eos # (Auto) 0.2 x10^3/uL (0.0-0.2) 07/04/19 05:25 Baso # (Auto) 0.1 X10^3/uL (0.0-0.1) 07/04/19 05:25 Absolute Nucleated RBC 0.0 /100WBC 07/04/19 05:25 Sodium 138 mmol/L (136-145) 07/04/19 05:25 Corrected Sodium TNP 07/04/19 05:25 Potassium 3.5 mmol/L (3.5-5.1) 07/04/19 05:25 Chloride 105 mmol/L (98-107) 07/04/19 05:25 Carbon Dioxide 21.1 mmol/L (21-32) 07/04/19 05:25 BUN 6 mg/dL (7-18) L 07/04/19 05:25 Creatinine 0.97 mg/dL (0.55-1.02) 07/04/19 05:25 Est GFR (MDRD) Af Amer > 60 (>60) 07/04/19 05:25 Est GFR (MDRD) Non-Af > 60 (>60) 07/04/19 05:25 Glucose 89 mg/dL (65-99) 07/04/19 05:25 Calcium 8.5 mg/dL (8.5-10.1) 07/04/19 05:25 Corrected Calcium TNP 07/04/19 05:25 Total Bilirubin 0.20 mg/dL (0.2-1.0) 07/04/19 05:25 AST 11 Units/L (15-37) L 07/04/19 05:25 ALT 15 Units/L (12-78) 07/04/19 05:25 Alkaline Phosphatase 84 Units/L (46-116) 07/04/19 05:25 Creatine Kinase 143 Units/L (26-192) 07/04/19 05:25 CK-MB (CK-2) < 1.0 ng/mL (0-4.0) 07/04/19 05:25 CK/CKMB % Calc 0.7 % (<4) 07/04/19 05:25 Troponin I < 0.02 ng/mL (0-1.5) 07/04/19 05:25 Total Protein 7.4 g/dL (6.4-8.2) 07/04/19 05:25 Albumin 3.6 g/dL (3.4-5.0) 07/04/19 05:25 Globulin 3.8 g/dL (2.5-4.5) 07/04/19 05:25 Albumin/Globulin Ratio 0.9 Ratio (1.1-2.1) L 07/04/19 05:25 TSH 3rd Generation 1.383 uIU/mL (0.358-3.74) 07/04/19 05:25 XRAY XRAY Interpreted by: Radiologist XRAY Findings: CXR: Borderline cardiomegaly w/o airspce disease EKG Rate: 110 Rhythm: ST Block: None Hypertrophy: None ST: Normal Opioid Opioid Risk Tool Age (Girish box if 16-45): Yes History of Preadolescent Sexual Abuse: No Total: 1 Total Score Risk Category: Low Risk Copyright: [facility] predicting aberrant behaviors Diagnosis Discharge Problem: Panic attack Chest pain Qualifiers: Chest pain type: precordial pain Qualified Code(s): R07.2 - Precordial pain Syncope Qualifiers: Syncope type: unspecified Qualified Code(s): R55 - Syncope and collapse Instructions Forms: Excuse From Work
[2019-07-04 05:49] LABS: BLOOD UREA NITROGEN 6 mg/dL (7-18); CALCIUM 8.5 mg/dL (8.5-10.1); CARBON DIOXIDE 21.1 mmol/L (21-32); CHLORIDE 105 mmol/L (98-107); CREATININE 0.97 mg/dL (0.55-1.02); SODIUM 138 mmol/L (136-145); TROPONIN I < 0.02 ng/mL (0-1.5); eGFR NON BLACK RACES > 60 (>60)
[2019-07-04 05:54] LABS: ALANINE AMINOTRANSFERASE 15 Units/L (12-78); ALBUMIN 3.6 g/dL (3.4-5.0); ALKALINE PHOSPHATASE 84 Units/L (46-116); ASPARTATE AMINO TRANSFERASE 11 Units/L (15-37); CKMB % 0.7 % (<4); CREATINE KINASE 143 Units/L (26-192); CREATINE KINASE MB < 1.0 ng/mL (0-4.0); TOTAL PROTEIN 7.4 g/dL (6.4-8.2)
[2019-07-04] MEDS ORDERED: NITROSTAT SL PRN (05:59)
[2019-07-04] MEDS ORDERED: ASPIRIN PO SCH (09:00)
[2019-07-04] MEDS ORDERED: PEPCID TAB 20 MG PO SCH (09:00)
[2019-07-04] MEDS ORDERED: MOBIC TAB 15 MG PO SCH (10:00)
[2019-07-04] MEDS ORDERED: LEXAPRO PO SCH (10:00)
[2019-07-04] MEDS ORDERED: LEXAPRO ONE (10:35)
[2019-07-04] MEDS ORDERED: TORADOL 60 MG VIAL IM ONE (10:48)
[2019-07-04] MEDS ORDERED: XANAX PO PRN (10:48)
[2019-07-04 12:35] LABS: CKMB % 0.8 % (<4); CREATINE KINASE 125 Units/L (26-192); CREATINE KINASE MB < 1.0 ng/mL (0-4.0); TROPONIN I < 0.02 ng/mL (0-1.5)
[2019-07-04 13:07] VITALS: BP 117/73
== END 2019-07-04 15:45 | disposition home or self-care (01) ==
LOC: ER 05:08 → MED/SURG 05:08
PROVIDERS: ADMIT Internal Medicine; ATTEND Obstetrics & Gynecology Obstetrics
DX: R94.31 Abnormal electrocardiogram [ECG] [EKG]; R06.02 Shortness of breath; M94.0 Chondrocostal junction syndrome [Tietze]; R07.2 Precordial pain; R55 Syncope and collapse; F41.0 Panic disorder [episodic paroxysmal anxiety]
CPT/HCPCS: 36415; 71010; 71045; 80053; 82550; 82553; 83735; 84443; 84484; 85025; 85610; 85730; 93005; 94760; 96365; 96374; 99284; A4222; G0378; J1885; J2060

== ENCOUNTER 2021-07-29 06:23 | Inpatient (IN) ==
[~2021-07-29 06:23] MED LIST: DIPRIVAN VIAL ONE; KETALAR ONE; LACRI-LUBE S.O.P. ONE; NEO-SYNEPHRINE INJ ONE; ROBINUL ONE; ULTANE GAS IN ONE; VERSED ONE; XYLOCAINE 2 % (PLAIN) ONE; ZOFRAN INJ 4 MG VIAL ONE
[2021-07-29] MEDS: D5 1/2 NS 1000 ML 1,000 ML IV SCH ×5 (06:29→19:56)
[2021-07-29] MEDS ORDERED: ANCEF VIAL 1 GRAM IVP ONE (06:29)
[2021-07-29] MEDS ORDERED: D5 1/2 NS 1000 ML 1,000 ML IV ONE (06:31)
[2021-07-29] MEDS ORDERED: ANCEF 1 GRAM IV PREMIX* 2 G/100 ML BAG IV ONE (06:32)
[2021-07-29] MEDS ORDERED: BETADINE SOLN ONE (06:49)
[2021-07-29] MEDS ORDERED: ProvayBLUE 0.5% ONE (06:49)
[2021-07-29 06:59] VITALS: BMI 28.6
[2021-07-29] MEDS ORDERED: DILAUDID INJ ONE ×3 (07:17→10:34)
[2021-07-29] MEDS ORDERED: DECADRON INJ ONE (07:17)
[2021-07-29] MEDS ORDERED: TORADOL 30 MG VIAL ONE (07:17)
[2021-07-29] MEDS ORDERED: BRIDION ONE (07:17)
[2021-07-29] MEDS ORDERED: FENTANYL VIAL INJ 100 mcg ONE (07:18)
[2021-07-29] MEDS ORDERED: LR 1000 ML IV 1,000 ML IV ONE (07:18)
[2021-07-29] MEDS ORDERED: PEPCID 20 MG IV PREMIX* 50 ML IV ONE (07:19)
[2021-07-29] MEDS ORDERED: OFIRMEV IV 1000 MG VIAL 1,000 MG/100 ML VIAL IV ONE (07:19)
[2021-07-29] MEDS ORDERED: ZEMURON 50 MG VIAL ONE (07:19)
[2021-07-29] MEDS ORDERED: BARHEMSYS INJ IVP PRN (09:26)
[2021-07-29] MEDS ORDERED: PHENERGAN INJ 25 MG IM PRN ×2 (09:26→17:44)
[2021-07-29] MEDS ORDERED: BENADRYL INJ 50 MG VIAL IVP PRN (09:26)
[2021-07-29] MEDS: DILAUDID INJ IVP PRN ×4 (10:15→10:30)
[2021-07-29] MEDS ORDERED: BARHEMSYS INJ ONE (10:20)
[2021-07-29] MEDS ORDERED: BENADRYL INJ 50 MG VIAL ONE (10:46)
[2021-07-29] MEDS ORDERED: ZOFRAN INJ 4 MG VIAL IVP PRN (11:12)
[2021-07-29] MEDS: MORPHINE SULFATE PCA 30 MG IVP PRN (11:38)
[2021-07-29] MEDS: BENADRYL INJ 50 MG VIAL IVP PRN ×3 (11:43→20:02)
[2021-07-29] MEDS: TORADOL 30 MG VIAL IVP PRN ×2 (14:07→18:51)
[2021-07-30] MEDS: TORADOL 30 MG VIAL IVP PRN ×2 (00:16→04:43)
[2021-07-30] MEDS: BENADRYL INJ 50 MG VIAL IVP PRN ×6 (00:17→21:22)
[2021-07-30] MEDS: MORPHINE SULFATE PCA 30 MG IVP PRN (03:30)
[2021-07-30] MEDS: D5 1/2 NS 1000 ML 1,000 ML IV SCH ×4 (03:33→20:18)
[2021-07-30 06:13] LABS: BASOPHILS # (AUTO) 0.1 X10^3/uL (0.0-0.1); BASOPHILS % (AUTO) 0.4 % (0.2-1.0); EOSINOPHILS # (AUTO) 0.3 x10^3/uL (0.0-0.2); HEMATOCRIT 31.6 % (36.0-47.0); HEMOGLOBIN 10.2 g/dL (12.0-16.0); LYMPHOCYTES # (AUTO) 1.9 X10^3/uL (1.3-2.9); LYMPHOCYTES % (AUTO) 13.2 % (21.0-51.0); MEAN CORPUSCULAR HEMOGLOBIN 26.7 pg (27.0-34.0); MEAN CORPUSCULAR HGB CONC 32.4 g/dL (33.0-35.0); MEAN CORPUSCULAR VOLUME 82.5 fL (80.0-100.0); MONOCYTES # (AUTO) 1.3 x10^3/uL (0.3-0.8); MONOCYTES % (AUTO) 9.3 % (0.0-13.0); NEUTROPHILS # (AUTO) 10.5 x10^3/uL (2.2-4.8); NEUTROPHILS % (AUTO) 75.1 % (42.0-75.0); PLATELET COUNT 152 X10^3/uL (150.0-450.0); RED BLOOD COUNT 3.83 X10^6/uL (3.5-5.4); RED CELL DISTRIBUTION WIDTH 13.6 % (11.6-16.5)
[2021-07-30 06:23] LABS: BLOOD UREA NITROGEN 5 mg/dL (7-18); CALCIUM 7.9 mg/dL (8.5-10.1); CARBON DIOXIDE 27.3 mmol/L (21-32); CHLORIDE 103 mmol/L (98-107); CREATININE 0.92 mg/dL (0.55-1.02); SODIUM 136 mmol/L (136-145); eGFR NON BLACK RACES > 60 (>60)
[2021-07-30] MEDS ORDERED: MOTRIN TAB 800 MG PO PRN (06:28)
[2021-07-30] MEDS ORDERED: MORPHINE SULFATE PCA 30 MG ONE (07:40)
[2021-07-30] MEDS: PERCOCET TAB 5/325 MG PO PRN ×4 (07:54→21:22)
[2021-07-30] MEDS: COLACE CAP 100 MG PO SCH ×2 (08:35→20:18)
[2021-07-30] MEDS: BACTROBAN TOPICAL OINT TOP SCH ×2 (14:06→21:52)
[2021-07-31] MEDS: D5 1/2 NS 1000 ML 1,000 ML IV SCH ×2 (03:03→06:52)
[2021-07-31] MEDS: PERCOCET TAB 5/325 MG PO PRN ×2 (03:09→08:30)
[2021-07-31] MEDS: BENADRYL INJ 50 MG VIAL IVP PRN (03:10)
[2021-07-31] MEDS: BACTROBAN TOPICAL OINT TOP SCH (05:46)
[2021-07-31] MEDS: COLACE CAP 100 MG PO SCH (08:20)
[2021-07-31 08:30] VITALS: BP 119/75
== END 2021-07-31 08:30 | disposition home or self-care (01) | DRG 743 ==
LOC: MED/SURG 06:23
PROVIDERS: ADMIT Specialist; ATTEND Specialist
DX: N94.4 Primary dysmenorrhea; N92.5 Other specified irregular menstruation; K66.0 Peritoneal adhesions (postprocedural) (postinfection); R10.2 Pelvic and perineal pain; N83.291 Other ovarian cyst, right side; D25.2 Subserosal leiomyoma of uterus